=== PATIENT | female | born 1980 | race Caucasian/White ===

== ENCOUNTER → 2016-05-02 | Outpatient (CLI) | payer BC ==
--- NOTE | 2016-05-02 13:09 | RAD ---
EXAM DESCRIPTION: XR ABDOMEN 2 VIEWS SUPINE ERECT CLINICAL HISTORY: LLQ AND LUQ PAIN, R/O OBSTRUCTION COMPARISON: None. FINDINGS: AP supine and upright views of the abdomen show a nonspecific, nonobstructive bowel gas pattern with no evidence for free intraperitoneal air. No air-filled dilated loops of small bowel are seen. No significant air-fluid levels are identified. No obvious organomegaly is seen. No abnormal calcifications are seen in the expected location of the renal collecting systems. Multiple calcifications in the pelvis are seen that are probably vascular. Visualized lung bases are unremarkable. IMPRESSION: Nonspecific abdominal series. Electronically signed by: Marcos Chakraborty MD 05/02/2016 13:07
== END ==
LOC: RAD 11:40
PROVIDERS: ATTEND Nurse Practitioner Family
DX: R19.7 Diarrhea, unspecified (principal)

== ENCOUNTER → 2016-05-23 | Outpatient (CLI) | payer BC | LOC: YCFC.O 14:10 | PROVIDERS: ATTEND Nurse Practitioner Family | DX: R10.13 Epigastric pain (principal); R19.7 Diarrhea, unspecified ==

== ENCOUNTER → 2016-05-26 | Outpatient (CLI) | payer BC ==
--- NOTE | 2016-05-26 12:51 | US ---
EXAM DESCRIPTION: US GALLBLADDER CLINICAL HISTORY: 35 y/o F, EPIGASTRIC PAIN COMPARISON: None. FINDINGS: The liver is of normal size, shape and echogenicity. No intrahepatic ductal dilatation. Common duct is measured prominently at 5 mm although may be measured somewhat generously. The findings raise the question of a potential recent or recently relieved obstruction although no gallstones are shown on this exam. The gallbladder appears normal sonographically. Visualized pancreas, aorta and IVC are within normal limits. Right kidney is partially demonstrated and grossly unremarkable. IMPRESSION: Common duct is measured slightly generously at 5 mm with differential considerations as outlined. Followup ultrasound is recommended unless laboratory findings suggest biliary obstruction. Electronically signed by: Elisa eLbron 05/26/2016 12:49
== END | disposition home or self-care (01) ==
LOC: US 10:24
PROVIDERS: ATTEND Nurse Practitioner Family
DX: R10.13 Epigastric pain (principal)